=== PATIENT | female | born 1975 | race Caucasian/White ===

== ENCOUNTER 2023-03-16 21:26 | Emergency (ER) | payer SELFPAY ==
[~2023-03-16] VITALS: Ht 172.7 cm; Wt 61.2 kg
[2023-03-16] MEDS ORDERED: ONDANSETRON HCL INJ 2MG/ML 2ML 2 MG/ML VIAL IV STA (21:57)
[2023-03-16] MEDS ORDERED: KETOROLAC TROMETHAMINE 30 MG/ML VIAL IV STA (21:57)
[2023-03-16] MEDS ORDERED: KETOROLAC TROMETHAMINE 30 MG/ML VIAL ONE (21:59)
[2023-03-16] MEDS ORDERED: SODIUM CHLORIDE 0.9% 1000ML 1,000 ML ONE (21:59)
[2023-03-16] MEDS ORDERED: ONDANSETRON HCL INJ 2MG/ML 2ML 2 MG/ML VIAL ONE (21:59)
[2023-03-16] MEDS ORDERED: SODIUM CHLORIDE 0.9% 1000ML 1,000 ML IV ONE (22:00)
[2023-03-16 22:17] LABS: BASOPHILS # (AUTO) 0.1 (0.0-0.1); BASOPHILS % 0.2 % (0.0-1.0); HEMATOCRIT 49.7 % (34.2-44.1); HEMOGLOBIN 17.9 g/dL (12.0-16.0); LYMPHOCYTES # (AUTO) 1.4 (1.0-3.2); LYMPHOCYTES % 6.5 % (18.0-39.1); MEAN CORPUSCULAR HEMOGLOBIN 37.4 pg (28-32); MEAN CORPUSCULAR VOLUME 103.8 fL (81-99); MONOCYTES % 4.6 % (4.4-11.3); NEUTROPHILS # (AUTO) 18.9 (2.1-6.9); NEUTROPHILS % 88.2 % (38.7-80.0); PLATELET COUNT 233 x10e3/uL (140-360); RED BLOOD COUNT 4.79 x10e6/uL (3.6-5.1); RED CELL DISTRIBUTION WIDTH 13.2 % (11.7-14.4)
[2023-03-16 22:37] LABS: ALANINE AMINOTRANSFERASE 11 IU/L (0-55); ALBUMIN 2.8 g/dL (3.5-5.0); ALBUMIN/GLOBULIN RATIO 0.8 (0.8-2.0); ALKALINE PHOSPHATASE 100 IU/L (40-150); ANION GAP 18.2 mmol/L (8-16); BLOOD UREA NITROGEN < 5 mg/dL (7-26); CALCIUM 8.8 mg/dL (8.4-10.2); CARBON DIOXIDE 23 mmol/L (22-29); CHLORIDE 98 mmol/L (98-107); CREATININE, SERUM 0.66 mg/dL (0.57-1.11); GLUCOSE 146 mg/dL (74-118); LIPASE 4 U/L (8-78); POTASSIUM 3.2 mmol/L (3.5-5.1); SODIUM 136 mmol/L (136-145)
[2023-03-16 22:38] LABS: BUN/CREATININE RATIO 8 (6-25)
[2023-03-16] MEDS ORDERED: IOPAMIDOL 370 MG/ML 100 ML INFUS..BTL INJ ONE (23:01)
[2023-03-16] MEDS ORDERED: SODIUM CHLORIDE 0.9% 1000ML 1,840 ML IV ONE (23:30)
[2023-03-16 23:48] LABS: CLARITY,URINE SL CLOUDY (CLEAR); COLOR,URINE AMBER (YELLOW); KETONES,URINE NEGATIVE (NEGATIVE); LEUKOCYTE ESTERASE ,URINE SMALL (NEGATIVE); NITRITE,URINE NEGATIVE (NEGATIVE); PROTEIN,URINE DIPSTICK NEGATIVE (NEGATIVE); URINE UROBILINOGEN 0.2 mg/dL (0.2 - 1)
[2023-03-16 23:51] LABS: BACTERIA,URINE MODERATE /HPF; EPITHELIAL CELLS,URINE FEW /LPF; WBC,URINE (MAN) 21-50 /HPF (0-5)
[2023-03-17 03:14] VITALS: BP 105/64; PULSE 95; RESP 16; TEMP 98.5; O2SAT 98
== END 2023-03-17 03:16 | disposition other institution (70) ==
LOC: ER 21:31
DX: R11.2 Nausea with vomiting, unspecified (principal); U07.1 COVID-19; R65.21 Severe sepsis with septic shock; K57.32 Diverticulitis of large intestine without perforation or abscess without bleeding; R10.30 Lower abdominal pain, unspecified; R16.0 Hepatomegaly, not elsewhere classified
CPT/HCPCS: 36415; 71045; 74177; 80053; 81001; 83605; 83690; 84702; 85025; 87040; 99284; J1885; J2405; J2543; J7030; Q9967; U0002

== ENCOUNTER 2024-02-23 13:46 | Inpatient (IN) | payer BC, OTHER ==
[~2024-02-23] VITALS: Ht 172.7 cm; Wt 70.5 kg
[~2024-02-23 13:46] MED LIST: NAPROSYN500 MG PO
[2024-02-23] MEDS ORDERED: SODIUM CHLORIDE FLUSH 10 ML SYR IV PRN ×2 (14:30)
[2024-02-23] MEDS: HYDROMORPHONE 1MG/1ML INJ IV STA ×3 (14:45→21:32)
[2024-02-23] MEDS: ONDANSETRON HCL INJ 2MG/ML 2ML 2 MG/ML VIAL IV STA (14:45)
[2024-02-23] MEDS: SODIUM CHLORIDE 0.9% 1000ML 1,000 ML IV ONE (14:46)
[2024-02-23 15:07] LABS: BASOPHILS # (AUTO) 0.1 (0.0-0.1); BASOPHILS % 0.4 % (0.0-1.0); EOSINOPHILS % 0.1 % (0.0-6.0); HEMATOCRIT 47.2 % (34.2-44.1); LYMPHOCYTES # (AUTO) 1.2 (1.0-3.2); MEAN CORPUSCULAR HEMOGLOBIN 36.2 pg (28-32); MEAN CORPUSCULAR HGB CONC 33.9 g/dL (31-35); MEAN CORPUSCULAR VOLUME 106.8 fL (81-99); MONOCYTES # (AUTO) 0.8 (0.2-0.8); MONOCYTES % 5.5 % (4.4-11.3); NEUTROPHILS # (AUTO) 12.6 (2.1-6.9); NEUTROPHILS % 85.4 % (38.7-80.0); PLATELET COUNT 206 x10e3/uL (140-360); RED BLOOD COUNT 4.42 x10e6/uL (3.6-5.1); RED CELL DISTRIBUTION WIDTH 14.1 % (11.7-14.4); WHITE BLOOD COUNT 14.71 x10e3/uL (4.8-10.8)
[2024-02-23 15:26] LABS: ALBUMIN 3.2 g/dL (3.5-5.0); ALBUMIN/GLOBULIN RATIO 0.9 (0.8-2.0); ANION GAP 17.1 mmol/L (8-16); BILIRUBIN,TOTAL 1.5 mg/dL (0.2-1.2); CALCIUM 8.8 mg/dL (8.4-10.2); CREATININE, SERUM 0.64 mg/dL (0.57-1.11); POTASSIUM 4.1 mmol/L (3.5-5.1); TOTAL PROTEIN 6.6 g/dL (6.5-8.1)
[2024-02-23] MEDS ORDERED: IOPAMIDOL 370 MG/ML 100 ML INFUS..BTL INJ ONE (15:35)
[2024-02-23 17:12] LABS: BILIRUBIN,URINE NEGATIVE (NEGATIVE); CLARITY,URINE SL CLOUDY (CLEAR); COLOR,URINE YELLOW (YELLOW); GLUCOSE, URINE NEGATIVE (NEGATIVE); KETONES,URINE 2+ (NEGATIVE); LEUKOCYTE ESTERASE ,URINE NEGATIVE (NEGATIVE); NITRITE,URINE NEGATIVE (NEGATIVE); PH,URINE 5.5 (5 - 7); PROTEIN,URINE DIPSTICK NEGATIVE (NEGATIVE); URINE UROBILINOGEN 0.2 mg/dL (0.2 - 1)
[2024-02-23 17:24] LABS: AMORPHOUS SEDIMENT,URINE MODERATE (FEW); BACTERIA,URINE FEW /HPF; EPITHELIAL CELLS,URINE MODERATE /LPF; TRANSITIONAL EPI CELLS,URINE MODERATE
[2024-02-23 17:44] LABS: PROTHROMBIN TIME 13.9 seconds (11.9-14.5)
[2024-02-23 17:45] LABS: PARTIAL THROMBOPLASTIN TIME 25.8 seconds (23.8-35.5)
[2024-02-23] MEDS: SODIUM CHLORIDE 0.9% IV ONE (18:02)
[2024-02-23 18:04] VITALS: PULSE 79; RESP 18; TEMP 98.1
[2024-02-23 20:00] VITALS: BP 111/74; PULSE 88; RESP 18; TEMP 97.5; O2SAT 98
[2024-02-23] MEDS: Vancomycin IV 1 GM in SODIUM CHLORIDE 0.9% 250ML 250 ML IV SCH (20:14)
[2024-02-23] MEDS: METRONIDAZOLE 500MG/NS 100ML 100 ML IV SCH (20:14)
[2024-02-23] MEDS: SODIUM CHLORIDE 0.9% 1000ML 1,000 ML IV SCH (20:14)
[2024-02-23 20:19] VITALS: BP 110/88; PULSE 88; RESP 18; TEMP 97.5; O2SAT 97
[2024-02-23 20:20] VITALS: PULSE 88; RESP 18; O2SAT 97
[2024-02-23] MEDS ORDERED: ELIQUIS5 MG PO (20:26)
[2024-02-23] MEDS ORDERED: ENOXAPARIN SOD INJ 60 MG/0.6 ML SYR SC SCH (21:00)
[2024-02-23] MEDS: ONDANSETRON HCL INJ 2MG/ML 2ML 2 MG/ML VIAL IV PRN (21:32)
[2024-02-23 22:50] VITALS: BP 110/88; PULSE 88; RESP 18; TEMP 97.5; O2SAT 97
[2024-02-24] VITALS (14 sets, daily range): BP systolic 98–105; BP diastolic 62–79; PULSE 83–93; RESP 17–18; TEMP 97.3–98.6; O2SAT 95–100
[2024-02-24] MEDS: HYDROMORPHONE 1MG/1ML INJ IV PRN (02:31)
[2024-02-24 06:08] LABS: BASOPHILS # (AUTO) 0.1 (0.0-0.1); BASOPHILS % 0.3 % (0.0-1.0); EOSINOPHILS % 0.1 % (0.0-6.0); HEMATOCRIT 44.6 % (34.2-44.1); HEMOGLOBIN 14.8 g/dL (12.0-16.0); LYMPHOCYTES # (AUTO) 1.6 (1.0-3.2); LYMPHOCYTES % 8.7 % (18.0-39.1); MEAN CORPUSCULAR HEMOGLOBIN 35.6 pg (28-32); MEAN CORPUSCULAR HGB CONC 33.2 g/dL (31-35); MEAN CORPUSCULAR VOLUME 107.2 fL (81-99); MONOCYTES % 5.6 % (4.4-11.3); NEUTROPHILS # (AUTO) 15.7 (2.1-6.9); NEUTROPHILS % 84.2 % (38.7-80.0); PLATELET COUNT 193 x10e3/uL (140-360); RED BLOOD COUNT 4.16 x10e6/uL (3.6-5.1); RED CELL DISTRIBUTION WIDTH 14.1 % (11.7-14.4); WHITE BLOOD COUNT 18.67 x10e3/uL (4.8-10.8)
[2024-02-24 06:31] LABS: ALBUMIN 2.5 g/dL (3.5-5.0); ALBUMIN/GLOBULIN RATIO 0.8 (0.8-2.0); ANION GAP 13.4 mmol/L (8-16); BILIRUBIN,TOTAL 1.5 mg/dL (0.2-1.2); CALCIUM 8.1 mg/dL (8.4-10.2); CREATININE, SERUM 0.58 mg/dL (0.57-1.11); TOTAL PROTEIN 5.6 g/dL (6.5-8.1)
[2024-02-24 06:39] LABS: POTASSIUM 3.4 mmol/L (3.5-5.1)
[2024-02-24] MEDS: MAGNESIUM SULFATE 2GM/50ML 50 ML IV SCH (12:31)
[2024-02-24] MEDS: KETOROLAC TROMETHAMINE 30 MG/ML VIAL IV STA (12:31)
[2024-02-24] MEDS: ALBUTEROL/IPRATROPIUM 3 ML NEB NEB PRN (13:40)
[2024-02-24] MEDS: POTASSIUM CHLORIDE 10MEQ/100ML 200 ML IV ONE (17:24)
[2024-02-24] MEDS: ENOXAPARIN SOD INJ 40 MG/0.4 ML SYR SC SCH (17:25)
[2024-02-24] MEDS: KETOROLAC TROMETHAMINE 30 MG/ML VIAL IV PRN (17:53)
[2024-02-25] VITALS (10 sets, daily range): BP systolic 93–103; BP diastolic 64–70; PULSE 88–96; RESP 17–20; TEMP 97–98.6; O2SAT 95–100
[2024-02-25 07:02] LABS: BASOPHILS % 0.2 % (0.0-1.0); EOSINOPHILS # (AUTO) 0.1 (0.0-0.4); EOSINOPHILS % 0.8 % (0.0-6.0); HEMATOCRIT 37.9 % (34.2-44.1); LYMPHOCYTES # (AUTO) 1.6 (1.0-3.2); LYMPHOCYTES % 11.2 % (18.0-39.1); MEAN CORPUSCULAR HEMOGLOBIN 36.6 pg (28-32); MEAN CORPUSCULAR HGB CONC 34.3 g/dL (31-35); MEAN CORPUSCULAR VOLUME 106.8 fL (81-99); MONOCYTES # (AUTO) 0.9 (0.2-0.8); MONOCYTES % 5.9 % (4.4-11.3); NEUTROPHILS # (AUTO) 11.9 (2.1-6.9); NEUTROPHILS % 81.2 % (38.7-80.0); PLATELET COUNT 170 x10e3/uL (140-360); RED BLOOD COUNT 3.55 x10e6/uL (3.6-5.1); RED CELL DISTRIBUTION WIDTH 14.3 % (11.7-14.4)
[2024-02-25 09:07] LABS: ALBUMIN 2.1 g/dL (3.5-5.0); ALBUMIN/GLOBULIN RATIO 0.8 (0.8-2.0); ALKALINE PHOSPHATASE 68 IU/L (40-150); ANION GAP 13.5 mmol/L (8-16); BILIRUBIN,TOTAL 0.9 mg/dL (0.2-1.2); BLOOD UREA NITROGEN < 5 mg/dL (7-26); CALCIUM 7.8 mg/dL (8.4-10.2); CARBON DIOXIDE 17 mmol/L (22-29); CHLORIDE 107 mmol/L (98-107); CREATININE, SERUM 0.53 mg/dL (0.57-1.11); EST GLOMERULAR FILTRATION RATE 115 ML/MIN (>=60); GLUCOSE 68 mg/dL (74-118); MAGNESIUM 1.9 MG/DL (1.3-2.1); POTASSIUM 3.5 mmol/L (3.5-5.1); SODIUM 134 mmol/L (136-145); TOTAL PROTEIN 4.9 g/dL (6.5-8.1)
[2024-02-25 09:15] LABS: ALANINE AMINOTRANSFERASE < 6 IU/L (0-55); BUN/CREATININE RATIO 9 (6-25)
[2024-02-25] MEDS: Vancomycin IV 1 GM in SODIUM CHLORIDE 0.9% 250ML 250 ML IV SCH (22:31)
[2024-02-26] VITALS (11 sets, daily range): BP systolic 101–118; BP diastolic 65–80; PULSE 81–98; RESP 18–22; TEMP 97.9–99.3; O2SAT 95–100
[2024-02-26 07:47] LABS: BASOPHILS % 0.2 % (0.0-1.0); EOSINOPHILS # (AUTO) 0.1 (0.0-0.4); EOSINOPHILS % 1.1 % (0.0-6.0); HEMATOCRIT 37.1 % (34.2-44.1); HEMOGLOBIN 12.7 g/dL (12.0-16.0); LYMPHOCYTES # (AUTO) 1.8 (1.0-3.2); LYMPHOCYTES % 14.6 % (18.0-39.1); MEAN CORPUSCULAR HEMOGLOBIN 36.5 pg (28-32); MEAN CORPUSCULAR HGB CONC 34.2 g/dL (31-35); MEAN CORPUSCULAR VOLUME 106.6 fL (81-99); MONOCYTES # (AUTO) 0.9 (0.2-0.8); MONOCYTES % 7.3 % (4.4-11.3); NEUTROPHILS # (AUTO) 9.3 (2.1-6.9); NEUTROPHILS % 75.9 % (38.7-80.0); PLATELET COUNT 177 x10e3/uL (140-360); RED BLOOD COUNT 3.48 x10e6/uL (3.6-5.1); RED CELL DISTRIBUTION WIDTH 14.1 % (11.7-14.4); WHITE BLOOD COUNT 12.22 x10e3/uL (4.8-10.8)
[2024-02-26] MEDS: SODIUM CHLORIDE 0.9% 250ML 250 ML ONE (07:56)
[2024-02-26] MEDS: SODIUM CHLORIDE 0.9% 1000ML 1,630 ML IV ONE (07:58)
[2024-02-26 08:03] LABS: ALANINE AMINOTRANSFERASE < 6 IU/L (0-55); ALBUMIN 1.9 g/dL (3.5-5.0); ALBUMIN/GLOBULIN RATIO 0.7 (0.8-2.0); ALKALINE PHOSPHATASE 69 IU/L (40-150); ANION GAP 13.6 mmol/L (8-16); BILIRUBIN,TOTAL 0.4 mg/dL (0.2-1.2); BLOOD UREA NITROGEN < 5 mg/dL (7-26); BUN/CREATININE RATIO 9 (6-25); CALCIUM 8.2 mg/dL (8.4-10.2); CARBON DIOXIDE 13 mmol/L (22-29); CHLORIDE 110 mmol/L (98-107); CREATININE, SERUM 0.57 mg/dL (0.57-1.11); EST GLOMERULAR FILTRATION RATE 113 ML/MIN (>=60); GLUCOSE 60 mg/dL (74-118); MAGNESIUM 1.5 MG/DL (1.3-2.1); POTASSIUM 3.6 mmol/L (3.5-5.1); SODIUM 133 mmol/L (136-145); TOTAL PROTEIN 4.7 g/dL (6.5-8.1)
[2024-02-26] MEDS: MAGNESIUM SULFATE 2GM/50ML 50 ML IV ONE (11:58)
[2024-02-26] MEDS: GUAIFENESIN/DEXTROMETHORPHAN LIQD 5 ML UDC NG PRN (12:00)
[2024-02-26] MEDS: DIPHENHYDRAMINE HCL 25 MG CAP PO PRN (13:29)
[2024-02-26] MEDS: Vancomycin IV 1 GM in SODIUM CHLORIDE 0.9% 250ML 250 ML IV SCH (23:06)
[2024-02-27] VITALS (10 sets, daily range): BP systolic 99–112; BP diastolic 65–81; PULSE 76–91; RESP 18–19; TEMP 97.9–98.6; O2SAT 96–100
[2024-02-27 05:55] LABS: BASOPHILS % 0.5 % (0.0-1.0); EOSINOPHILS # (AUTO) 0.2 (0.0-0.4); EOSINOPHILS % 1.7 % (0.0-6.0); HEMOGLOBIN 12.3 g/dL (12.0-16.0); LYMPHOCYTES # (AUTO) 1.8 (1.0-3.2); LYMPHOCYTES % 21.2 % (18.0-39.1); MEAN CORPUSCULAR HEMOGLOBIN 35.2 pg (28-32); MEAN CORPUSCULAR HGB CONC 32.4 g/dL (31-35); MEAN CORPUSCULAR VOLUME 108.9 fL (81-99); MONOCYTES # (AUTO) 0.9 (0.2-0.8); MONOCYTES % 10.6 % (4.4-11.3); NEUTROPHILS # (AUTO) 5.7 (2.1-6.9); NEUTROPHILS % 65.5 % (38.7-80.0); PLATELET COUNT 209 x10e3/uL (140-360); RED BLOOD COUNT 3.49 x10e6/uL (3.6-5.1); RED CELL DISTRIBUTION WIDTH 14.3 % (11.7-14.4); WHITE BLOOD COUNT 8.62 x10e3/uL (4.8-10.8)
[2024-02-27 06:40] LABS: ALBUMIN 1.8 g/dL (3.5-5.0); ALBUMIN/GLOBULIN RATIO 0.6 (0.8-2.0); ALKALINE PHOSPHATASE 76 IU/L (40-150); ANION GAP 12.4 mmol/L (8-16); BILIRUBIN,TOTAL 0.2 mg/dL (0.2-1.2); BLOOD UREA NITROGEN < 5 mg/dL (7-26); BUN/CREATININE RATIO 9 (6-25); CALCIUM 7.8 mg/dL (8.4-10.2); CARBON DIOXIDE 15 mmol/L (22-29); CHLORIDE 113 mmol/L (98-107); CREATININE, SERUM 0.56 mg/dL (0.57-1.11); EST GLOMERULAR FILTRATION RATE 113 ML/MIN (>=60); GLUCOSE 140 mg/dL (74-118); MAGNESIUM 1.6 MG/DL (1.3-2.1); SODIUM 137 mmol/L (136-145); TOTAL PROTEIN 4.6 g/dL (6.5-8.1)
[2024-02-27 06:42] LABS: ALANINE AMINOTRANSFERASE < 6 IU/L (0-55); POTASSIUM 3.4 mmol/L (3.5-5.1)
[2024-02-27] MEDS: APIXABAN 5 MG TABLET PO SCH (08:36)
[2024-02-27] MEDS: POTASSIUM CHLORIDE 10MEQ EA PO ONE (08:37)
[2024-02-27] MEDS: MAGNESIUM SULFATE 2GM/50ML 50 ML IV SCH (08:38)
[2024-02-28] VITALS (8 sets, daily range): BP systolic 97–119; BP diastolic 69–84; PULSE 77–89; RESP 18–19; TEMP 98–98.8; O2SAT 95–100
[2024-02-28 05:27] LABS: BASOPHILS % 0.5 % (0.0-1.0); EOSINOPHILS # (AUTO) 0.1 (0.0-0.4); EOSINOPHILS % 2.1 % (0.0-6.0); HEMOGLOBIN 12.1 g/dL (12.0-16.0); LYMPHOCYTES # (AUTO) 1.9 (1.0-3.2); LYMPHOCYTES % 27.8 % (18.0-39.1); MEAN CORPUSCULAR HEMOGLOBIN 35.2 pg (28-32); MEAN CORPUSCULAR HGB CONC 32.7 g/dL (31-35); MEAN CORPUSCULAR VOLUME 107.6 fL (81-99); MONOCYTES # (AUTO) 0.8 (0.2-0.8); MONOCYTES % 11.6 % (4.4-11.3); NEUTROPHILS # (AUTO) 3.8 (2.1-6.9); NEUTROPHILS % 57.5 % (38.7-80.0); PLATELET COUNT 220 x10e3/uL (140-360); RED BLOOD COUNT 3.44 x10e6/uL (3.6-5.1); RED CELL DISTRIBUTION WIDTH 14.4 % (11.7-14.4); WHITE BLOOD COUNT 6.65 x10e3/uL (4.8-10.8)
[2024-02-28 05:52] LABS: ALBUMIN 1.8 g/dL (3.5-5.0); ALBUMIN/GLOBULIN RATIO 0.7 (0.8-2.0); ALKALINE PHOSPHATASE 78 IU/L (40-150); ANION GAP 10.3 mmol/L (8-16); BILIRUBIN,TOTAL 0.3 mg/dL (0.2-1.2); BLOOD UREA NITROGEN < 5 mg/dL (7-26); BUN/CREATININE RATIO 11 (6-25); CALCIUM 7.7 mg/dL (8.4-10.2); CARBON DIOXIDE 18 mmol/L (22-29); CHLORIDE 113 mmol/L (98-107); CREATININE, SERUM 0.46 mg/dL (0.57-1.11); EST GLOMERULAR FILTRATION RATE 119 ML/MIN (>=60); GLUCOSE 91 mg/dL (74-118); MAGNESIUM 1.8 MG/DL (1.3-2.1); SODIUM 138 mmol/L (136-145); TOTAL PROTEIN 4.4 g/dL (6.5-8.1)
[2024-02-28 05:57] LABS: ALANINE AMINOTRANSFERASE < 6 IU/L (0-55); POTASSIUM 3.3 mmol/L (3.5-5.1)
[2024-02-28] MEDS: POTASSIUM CHLORIDE 10MEQ EA PO ONE (13:08)
[2024-02-28] MEDS: DICYCLOMINE HCL 10 MG CAP PO SCH (13:08)
[2024-02-28] MEDS: HYDROCODONE/APAP 5MG-325MG TAB PO PRN (21:47)
[2024-02-29] VITALS (11 sets, daily range): BP systolic 105–136; BP diastolic 74–85; PULSE 78–91; RESP 18–20; TEMP 97.3–98.9; O2SAT 94–100
[2024-02-29 05:51] LABS: BASOPHILS % 0.5 % (0.0-1.0); EOSINOPHILS # (AUTO) 0.1 (0.0-0.4); EOSINOPHILS % 1.4 % (0.0-6.0); HEMATOCRIT 37.5 % (34.2-44.1); HEMOGLOBIN 12.4 g/dL (12.0-16.0); LYMPHOCYTES # (AUTO) 1.5 (1.0-3.2); LYMPHOCYTES % 19.5 % (18.0-39.1); MEAN CORPUSCULAR HEMOGLOBIN 35.2 pg (28-32); MEAN CORPUSCULAR HGB CONC 33.1 g/dL (31-35); MEAN CORPUSCULAR VOLUME 106.5 fL (81-99); NEUTROPHILS # (AUTO) 4.9 (2.1-6.9); NEUTROPHILS % 65.1 % (38.7-80.0); PLATELET COUNT 235 x10e3/uL (140-360); RED BLOOD COUNT 3.52 x10e6/uL (3.6-5.1); RED CELL DISTRIBUTION WIDTH 14.5 % (11.7-14.4); WHITE BLOOD COUNT 7.59 x10e3/uL (4.8-10.8)
[2024-02-29 06:20] LABS: ANION GAP 11.6 mmol/L (8-16); BLOOD UREA NITROGEN < 5 mg/dL (7-26); BUN/CREATININE RATIO 11 (6-25); CALCIUM 8.5 mg/dL (8.4-10.2); CARBON DIOXIDE 19 mmol/L (22-29); CHLORIDE 111 mmol/L (98-107); CREATININE, SERUM 0.46 mg/dL (0.57-1.11); EST GLOMERULAR FILTRATION RATE 119 ML/MIN (>=60); GLUCOSE 108 mg/dL (74-118); MAGNESIUM 1.4 MG/DL (1.3-2.1); POTASSIUM 3.6 mmol/L (3.5-5.1); SODIUM 138 mmol/L (136-145)
[2024-02-29] MEDS: MAGNESIUM SULFATE 2GM/50ML 50 ML IV SCH (10:16)
[2024-02-29] MEDS: FUROSEMIDE INJ 10 MG/ML 4 ML VIAL IV ONE (21:07)
[2024-03-01 04:14] VITALS: BP 122/77; PULSE 90; RESP 18; TEMP 98.5; O2SAT 94
[2024-03-01 06:28] LABS: ALBUMIN 2.1 g/dL (3.5-5.0); ALBUMIN/GLOBULIN RATIO 0.7 (0.8-2.0); ALKALINE PHOSPHATASE 72 IU/L (40-150); ANION GAP 13.5 mmol/L (8-16); BILIRUBIN,TOTAL 0.4 mg/dL (0.2-1.2); BLOOD UREA NITROGEN < 5 mg/dL (7-26); BUN/CREATININE RATIO 10 (6-25); CALCIUM 8.9 mg/dL (8.4-10.2); CARBON DIOXIDE 24 mmol/L (22-29); CHLORIDE 107 mmol/L (98-107); CREATININE, SERUM 0.49 mg/dL (0.57-1.11); EST GLOMERULAR FILTRATION RATE 117 ML/MIN (>=60); GLUCOSE 94 mg/dL (74-118); MAGNESIUM 1.6 MG/DL (1.3-2.1); POTASSIUM 3.5 mmol/L (3.5-5.1); SODIUM 141 mmol/L (136-145); TOTAL PROTEIN 5.2 g/dL (6.5-8.1)
[2024-03-01 06:32] LABS: ALANINE AMINOTRANSFERASE < 6 IU/L (0-55)
[2024-03-01 06:44] VITALS: PULSE 76; RESP 21; O2SAT 98
[2024-03-01 07:22] VITALS: BP 115/78; PULSE 86; RESP 17; TEMP 98.9; O2SAT 98
[2024-03-01] MEDS: FUROSEMIDE INJ 10 MG/ML 4 ML VIAL IV SCH (13:29)
[2024-03-01] MEDS: MAGNESIUM SULFATE 2GM/50ML 50 ML IV SCH (13:30)
[2024-03-01 15:52] VITALS: BP 106/73; PULSE 82; RESP 17; TEMP 98.4; O2SAT 95
[2024-03-01 16:50] LABS: HOMOCYSTEINE, PLASMA 14.3 umol/L (0.0-14.5)
[2024-03-01 20:00] VITALS: BP 97/71; PULSE 83; RESP 18; TEMP 98.4; O2SAT 95
[2024-03-01] MEDS ORDERED: Vancomycin IV 1 GM in SODIUM CHLORIDE 0.9% 250ML 250 ML IV SCH (21:00)
[2024-03-01 23:15] VITALS: BP 97/71; PULSE 83; RESP 18; TEMP 98.4; O2SAT 95
[2024-03-02] VITALS (10 sets, daily range): BP systolic 103–110; BP diastolic 67–78; PULSE 71–84; RESP 18–21; TEMP 97.7–98.8; O2SAT 94–100
[2024-03-02] MEDS: HYDROMORPHONE 1MG/1ML INJ IV PRN ×2 (00:09→10:01)
[2024-03-02 05:39] LABS: BASOPHILS % 0.2 % (0.0-1.0); EOSINOPHILS # (AUTO) 0.1 (0.0-0.4); HEMATOCRIT 34.4 % (34.2-44.1); HEMOGLOBIN 12.1 g/dL (12.0-16.0); LYMPHOCYTES # (AUTO) 1.5 (1.0-3.2); LYMPHOCYTES % 17.7 % (18.0-39.1); MEAN CORPUSCULAR HGB CONC 35.2 g/dL (31-35); MEAN CORPUSCULAR VOLUME 102.4 fL (81-99); MONOCYTES % 11.1 % (4.4-11.3); NEUTROPHILS # (AUTO) 6.1 (2.1-6.9); NEUTROPHILS % 69.5 % (38.7-80.0); PLATELET COUNT 329 x10e3/uL (140-360); RED BLOOD COUNT 3.36 x10e6/uL (3.6-5.1); RED CELL DISTRIBUTION WIDTH 14.2 % (11.7-14.4); WHITE BLOOD COUNT 8.71 x10e3/uL (4.8-10.8)
[2024-03-02 06:26] LABS: ANION GAP 14.5 mmol/L (8-16); BLOOD UREA NITROGEN < 5 mg/dL (7-26); BUN/CREATININE RATIO 10 (6-25); CARBON DIOXIDE 28 mmol/L (22-29); CHLORIDE 99 mmol/L (98-107); CREATININE, SERUM 0.51 mg/dL (0.57-1.11); EST GLOMERULAR FILTRATION RATE 116 ML/MIN (>=60); GLUCOSE 90 mg/dL (74-118); POTASSIUM 3.5 mmol/L (3.5-5.1); SODIUM 138 mmol/L (136-145)
[2024-03-02] MEDS: PROMETHAZINE 12.5MG/ NACL 0.9% 12.5 MG/50 ML BAG IV PRN (11:01)
[2024-03-03] VITALS (10 sets, daily range): BP systolic 98–115; BP diastolic 64–80; PULSE 63–88; RESP 16–19; TEMP 97.8–98.6; O2SAT 95–100
[2024-03-04] VITALS (10 sets, daily range): BP systolic 98–110; BP diastolic 64–77; PULSE 72–85; RESP 16–19; TEMP 97.8–98.9; O2SAT 93–100
[2024-03-04 07:24] LABS: BASOPHILS # (AUTO) 0.1 (0.0-0.1); BASOPHILS % 0.4 % (0.0-1.0); EOSINOPHILS # (AUTO) 0.2 (0.0-0.4); EOSINOPHILS % 1.4 % (0.0-6.0); HEMATOCRIT 36.1 % (34.2-44.1); HEMOGLOBIN 12.5 g/dL (12.0-16.0); LYMPHOCYTES # (AUTO) 2.1 (1.0-3.2); LYMPHOCYTES % 17.1 % (18.0-39.1); MEAN CORPUSCULAR HEMOGLOBIN 35.2 pg (28-32); MEAN CORPUSCULAR HGB CONC 34.6 g/dL (31-35); MEAN CORPUSCULAR VOLUME 101.7 fL (81-99); MONOCYTES # (AUTO) 1.1 (0.2-0.8); MONOCYTES % 8.7 % (4.4-11.3); NEUTROPHILS # (AUTO) 8.8 (2.1-6.9); NEUTROPHILS % 71.9 % (38.7-80.0); PLATELET COUNT 411 x10e3/uL (140-360); RED BLOOD COUNT 3.55 x10e6/uL (3.6-5.1); RED CELL DISTRIBUTION WIDTH 14.2 % (11.7-14.4); WHITE BLOOD COUNT 12.19 x10e3/uL (4.8-10.8)
[2024-03-04] MEDS: SODIUM CHLORIDE 0.9% 250ML 250 ML ONE (07:50)
[2024-03-04 07:59] LABS: ALBUMIN 2.2 g/dL (3.5-5.0); ALBUMIN/GLOBULIN RATIO 0.7 (0.8-2.0); ALKALINE PHOSPHATASE 58 IU/L (40-150); BILIRUBIN,TOTAL 0.3 mg/dL (0.2-1.2); BLOOD UREA NITROGEN < 5 mg/dL (7-26); CALCIUM 9.5 mg/dL (8.4-10.2); CARBON DIOXIDE 32 mmol/L (22-29); CHLORIDE 99 mmol/L (98-107); CREATININE, SERUM 0.55 mg/dL (0.57-1.11); EST GLOMERULAR FILTRATION RATE 114 ML/MIN (>=60); GLUCOSE 95 mg/dL (74-118); SODIUM 141 mmol/L (136-145); TOTAL PROTEIN 5.5 g/dL (6.5-8.1)
[2024-03-04 08:01] LABS: ALANINE AMINOTRANSFERASE < 6 IU/L (0-55); BUN/CREATININE RATIO 9 (6-25)
[2024-03-05] VITALS (9 sets, daily range): BP systolic 97–111; BP diastolic 60–77; PULSE 74–86; RESP 16–18; TEMP 97.7–99.5; O2SAT 96–100
[2024-03-05 05:55] LABS: BASOPHILS # (AUTO) 0.1 (0.0-0.1); BASOPHILS % 0.5 % (0.0-1.0); EOSINOPHILS # (AUTO) 0.2 (0.0-0.4); EOSINOPHILS % 1.4 % (0.0-6.0); HEMATOCRIT 36.1 % (34.2-44.1); HEMOGLOBIN 11.9 g/dL (12.0-16.0); LYMPHOCYTES # (AUTO) 2.3 (1.0-3.2); LYMPHOCYTES % 20.6 % (18.0-39.1); MEAN CORPUSCULAR HEMOGLOBIN 34.9 pg (28-32); MEAN CORPUSCULAR VOLUME 105.9 fL (81-99); MONOCYTES # (AUTO) 0.9 (0.2-0.8); MONOCYTES % 8.2 % (4.4-11.3); NEUTROPHILS # (AUTO) 7.6 (2.1-6.9); NEUTROPHILS % 68.6 % (38.7-80.0); PLATELET COUNT 409 x10e3/uL (140-360); RED BLOOD COUNT 3.41 x10e6/uL (3.6-5.1); RED CELL DISTRIBUTION WIDTH 14.5 % (11.7-14.4); WHITE BLOOD COUNT 11.06 x10e3/uL (4.8-10.8)
[2024-03-05 06:20] LABS: ALBUMIN 2.2 g/dL (3.5-5.0); ALBUMIN/GLOBULIN RATIO 0.7 (0.8-2.0); ALKALINE PHOSPHATASE 53 IU/L (40-150); ANION GAP 6.3 mmol/L (8-16); BILIRUBIN,TOTAL 0.2 mg/dL (0.2-1.2); BLOOD UREA NITROGEN < 5 mg/dL (7-26); CARBON DIOXIDE 37 mmol/L (22-29); CHLORIDE 102 mmol/L (98-107); CREATININE, SERUM 0.51 mg/dL (0.57-1.11); EST GLOMERULAR FILTRATION RATE 116 ML/MIN (>=60); GLUCOSE 101 mg/dL (74-118); SODIUM 142 mmol/L (136-145); TOTAL PROTEIN 5.5 g/dL (6.5-8.1)
[2024-03-05 06:26] LABS: ALANINE AMINOTRANSFERASE < 6 IU/L (0-55); BUN/CREATININE RATIO 10 (6-25); POTASSIUM 3.3 mmol/L (3.5-5.1)
[2024-03-05 07:06] LABS: CALCIUM 9.1 mg/dL (8.4-10.2)
[2024-03-05] MEDS ORDERED: IOPAMIDOL 370 MG/ML 100 ML INFUS..BTL INJ ONE (11:49)
[2024-03-05] MEDS: MAGNESIUM HYDROXIDE 30 ML UDC PO SCH (20:43)
[2024-03-05] MEDS: METRONIDAZOLE 500MG/NS 100ML 100 ML IV SCH (20:43)
[2024-03-05] MEDS ORDERED: METRONIDAZOLE 500MG/NS 100ML 100 ML IV SCH (21:00)
[2024-03-06] VITALS (8 sets, daily range): BP systolic 93–107; BP diastolic 66–73; PULSE 68–98; RESP 16–20; TEMP 97.5–99.6; O2SAT 96–100
[2024-03-06 06:51] LABS: BASOPHILS # (AUTO) 0.1 (0.0-0.1); BASOPHILS % 0.6 % (0.0-1.0); EOSINOPHILS # (AUTO) 0.3 (0.0-0.4); EOSINOPHILS % 2.4 % (0.0-6.0); HEMATOCRIT 37.1 % (34.2-44.1); HEMOGLOBIN 12.8 g/dL (12.0-16.0); LYMPHOCYTES # (AUTO) 2.5 (1.0-3.2); LYMPHOCYTES % 24.3 % (18.0-39.1); MEAN CORPUSCULAR HEMOGLOBIN 35.2 pg (28-32); MEAN CORPUSCULAR HGB CONC 34.5 g/dL (31-35); MEAN CORPUSCULAR VOLUME 101.9 fL (81-99); MONOCYTES # (AUTO) 0.9 (0.2-0.8); MONOCYTES % 9.1 % (4.4-11.3); NEUTROPHILS # (AUTO) 6.4 (2.1-6.9); PLATELET COUNT 440 x10e3/uL (140-360); RED BLOOD COUNT 3.64 x10e6/uL (3.6-5.1); RED CELL DISTRIBUTION WIDTH 14.5 % (11.7-14.4); WHITE BLOOD COUNT 10.21 x10e3/uL (4.8-10.8)
[2024-03-06 07:14] LABS: ALBUMIN 2.3 g/dL (3.5-5.0); ALBUMIN/GLOBULIN RATIO 0.6 (0.8-2.0); ALKALINE PHOSPHATASE 57 IU/L (40-150); BILIRUBIN,TOTAL 0.3 mg/dL (0.2-1.2); BLOOD UREA NITROGEN < 5 mg/dL (7-26); CREATININE, SERUM 0.55 mg/dL (0.57-1.11); EST GLOMERULAR FILTRATION RATE 114 ML/MIN (>=60); GLUCOSE 93 mg/dL (74-118); MAGNESIUM 2.1 MG/DL (1.3-2.1); TOTAL PROTEIN 6.1 g/dL (6.5-8.1)
[2024-03-06 07:15] LABS: ALANINE AMINOTRANSFERASE < 6 IU/L (0-55); BUN/CREATININE RATIO 9 (6-25)
[2024-03-06 07:31] LABS: CALCIUM 9.5 mg/dL (8.4-10.2)
[2024-03-06 08:43] LABS: ANION GAP 12.2 mmol/L (8-16); CARBON DIOXIDE 33 mmol/L (22-29); CHLORIDE 99 mmol/L (98-107); SODIUM 141 mmol/L (136-145)
[2024-03-06 08:44] LABS: POTASSIUM 3.2 mmol/L (3.5-5.1)
[2024-03-06] MEDS: ALPRAZOLAM 0.5 MG TAB PO PRN (09:24)
[2024-03-06] MEDS: ENOXAPARIN SOD INJ 60 MG/0.6 ML SYR SC SCH (09:25)
[2024-03-06] MEDS: HYDROCODONE/APAP 7.5MG-325MG 1 EA TAB PO PRN (20:43)
[2024-03-07] VITALS (10 sets, daily range): BP systolic 92–109; BP diastolic 69–79; PULSE 72–98; RESP 8–20; TEMP 97.6–99.5; O2SAT 94–100
[2024-03-07 05:56] LABS: BASOPHILS # (AUTO) 0.1 (0.0-0.1); BASOPHILS % 0.5 % (0.0-1.0); EOSINOPHILS # (AUTO) 0.2 (0.0-0.4); EOSINOPHILS % 1.9 % (0.0-6.0); HEMATOCRIT 38.7 % (34.2-44.1); HEMOGLOBIN 13.4 g/dL (12.0-16.0); LYMPHOCYTES # (AUTO) 2.4 (1.0-3.2); LYMPHOCYTES % 21.3 % (18.0-39.1); MEAN CORPUSCULAR HEMOGLOBIN 35.4 pg (28-32); MEAN CORPUSCULAR HGB CONC 34.6 g/dL (31-35); MEAN CORPUSCULAR VOLUME 102.4 fL (81-99); MONOCYTES # (AUTO) 1.1 (0.2-0.8); MONOCYTES % 9.6 % (4.4-11.3); NEUTROPHILS # (AUTO) 7.5 (2.1-6.9); NEUTROPHILS % 66.3 % (38.7-80.0); PLATELET COUNT 484 x10e3/uL (140-360); RED BLOOD COUNT 3.78 x10e6/uL (3.6-5.1); RED CELL DISTRIBUTION WIDTH 14.6 % (11.7-14.4); WHITE BLOOD COUNT 11.35 x10e3/uL (4.8-10.8)
[2024-03-07 06:50] LABS: ALBUMIN 2.4 g/dL (3.5-5.0); ALBUMIN/GLOBULIN RATIO 0.6 (0.8-2.0); ALKALINE PHOSPHATASE 65 IU/L (40-150); BILIRUBIN,TOTAL 0.1 mg/dL (0.2-1.2); BLOOD UREA NITROGEN < 5 mg/dL (7-26); CREATININE, SERUM 0.54 mg/dL (0.57-1.11); EST GLOMERULAR FILTRATION RATE 114 ML/MIN (>=60); GLUCOSE 105 mg/dL (74-118); TOTAL PROTEIN 6.4 g/dL (6.5-8.1)
[2024-03-07 06:52] LABS: ALANINE AMINOTRANSFERASE < 6 IU/L (0-55); BUN/CREATININE RATIO 9 (6-25)
[2024-03-07] MEDS: ERYTHROMYCIN 500 MG TAB PO SCH (13:04)
[2024-03-07] MEDS: NEOMYCIN SULFATE 500 MG TAB PO SCH (13:04)
[2024-03-07] MEDS: HYDROCODONE/APAP 7.5MG-325MG 1 EA TAB PO PRN (16:10)
[2024-03-07 18:54] LABS: ANION GAP 19.5 mmol/L (8-16); CARBON DIOXIDE 25 mmol/L (22-29); CHLORIDE 100 mmol/L (98-107); POTASSIUM 3.5 mmol/L (3.5-5.1); SODIUM 141 mmol/L (136-145)
[2024-03-07 18:55] LABS: CALCIUM 9.1 mg/dL (8.4-10.2)
[2024-03-08] VITALS (20 sets, daily range): BP systolic 87–126; BP diastolic 58–83; PULSE 77–91; RESP 8–20; TEMP 96.4–98.5; O2SAT 94–100
[2024-03-08 06:38] LABS: BASOPHILS # (AUTO) 0.1 (0.0-0.1); BASOPHILS % 0.4 % (0.0-1.0); EOSINOPHILS # (AUTO) 0.2 (0.0-0.4); EOSINOPHILS % 1.3 % (0.0-6.0); HEMATOCRIT 39.6 % (34.2-44.1); HEMOGLOBIN 13.5 g/dL (12.0-16.0); LYMPHOCYTES # (AUTO) 1.6 (1.0-3.2); LYMPHOCYTES % 12.2 % (18.0-39.1); MEAN CORPUSCULAR HEMOGLOBIN 35.2 pg (28-32); MEAN CORPUSCULAR HGB CONC 34.1 g/dL (31-35); MEAN CORPUSCULAR VOLUME 103.1 fL (81-99); MONOCYTES % 7.4 % (4.4-11.3); NEUTROPHILS # (AUTO) 10.1 (2.1-6.9); NEUTROPHILS % 77.9 % (38.7-80.0); PLATELET COUNT 437 x10e3/uL (140-360); RED BLOOD COUNT 3.84 x10e6/uL (3.6-5.1); RED CELL DISTRIBUTION WIDTH 14.7 % (11.7-14.4)
[2024-03-08 06:53] LABS: ALBUMIN 2.5 g/dL (3.5-5.0); ALBUMIN/GLOBULIN RATIO 0.6 (0.8-2.0); ALKALINE PHOSPHATASE 60 IU/L (40-150); BILIRUBIN,TOTAL 0.3 mg/dL (0.2-1.2); BLOOD UREA NITROGEN < 5 mg/dL (7-26); EST GLOMERULAR FILTRATION RATE 111 ML/MIN (>=60); GLUCOSE 103 mg/dL (74-118); TOTAL PROTEIN 6.5 g/dL (6.5-8.1)
[2024-03-08 06:56] LABS: ALANINE AMINOTRANSFERASE < 6 IU/L (0-55); BUN/CREATININE RATIO 8 (6-25)
[2024-03-08] MEDS: ROPIVACAINE 246.25 MG, EPINEPHRINE HCL 1:1000 1ML 0.5 MG, CLONIDINE HCL 0.08 MG, KETORO... INJ ONE (08:34)
[2024-03-08] MEDS: BUPIVACAINE LIPOSOME/PF 266 MG/20 ML IJ ONE (10:15)
[2024-03-08 11:01] LABS: ANION GAP 18.3 mmol/L (8-16)
[2024-03-08 11:02] LABS: CALCIUM 8.8 mg/dL (8.4-10.2); CARBON DIOXIDE 24 mmol/L (22-29); CHLORIDE 99 mmol/L (98-107); POTASSIUM 3.3 mmol/L (3.5-5.1); SODIUM 138 mmol/L (136-145)
[2024-03-08] MEDS ORDERED: FENTANYL CITRATE/PF 100MCG/2 ML INJ ONE (13:27)
[2024-03-08] MEDS ORDERED: ACETAMINOPHEN 1000 MG/100 ML 100 ML IV ONE (15:44)
[2024-03-08] MEDS ORDERED: HYDROMORPHONE 2MG/ML ONE (16:52)
[2024-03-08] MEDS ORDERED: SUGAMMADEX SODIUM 200 MG/2 ML VIAL IV ONE (18:32)
[2024-03-08] MEDS: SODIUM CHLORIDE 0.9% 1000ML 1,000 ML IV SCH (20:22)
[2024-03-08] MEDS: HYDROMORPHONE 1MG/1ML INJ IV PRN (21:06)
[2024-03-08] MEDS: SODIUM CHLORIDE 0.9% 250ML IRRIG IR SCH (22:02)
[2024-03-09] VITALS (54 sets, daily range): BP systolic 91–118; BP diastolic 59–80; PULSE 74–102; RESP 8–27; TEMP 97.8–98.5; O2SAT 89–100
[2024-03-09] MEDS: ACETAMINOPHEN 1000 MG/100 ML IV PRN (00:02)
[2024-03-09 06:19] LABS: BASOPHILS % 0.1 % (0.0-1.0); HEMATOCRIT 38.3 % (34.2-44.1); LYMPHOCYTES # (AUTO) 0.9 (1.0-3.2); LYMPHOCYTES % 6.6 % (18.0-39.1); MEAN CORPUSCULAR HEMOGLOBIN 35.1 pg (28-32); MEAN CORPUSCULAR HGB CONC 33.9 g/dL (31-35); MEAN CORPUSCULAR VOLUME 103.5 fL (81-99); MONOCYTES # (AUTO) 0.4 (0.2-0.8); MONOCYTES % 2.8 % (4.4-11.3); NEUTROPHILS # (AUTO) 12.7 (2.1-6.9); NEUTROPHILS % 89.7 % (38.7-80.0); PLATELET COUNT 444 x10e3/uL (140-360); RED CELL DISTRIBUTION WIDTH 14.4 % (11.7-14.4); WHITE BLOOD COUNT 14.17 x10e3/uL (4.8-10.8)
[2024-03-09 06:43] LABS: ALBUMIN/GLOBULIN RATIO 0.6 (0.8-2.0); ALKALINE PHOSPHATASE 55 IU/L (40-150); BILIRUBIN,TOTAL 0.3 mg/dL (0.2-1.2); BLOOD UREA NITROGEN 8 mg/dL (7-26); BUN/CREATININE RATIO 14 (6-25); CREATININE, SERUM 0.56 mg/dL (0.57-1.11); EST GLOMERULAR FILTRATION RATE 113 ML/MIN (>=60); GLUCOSE 152 mg/dL (74-118); TOTAL PROTEIN 5.3 g/dL (6.5-8.1)
[2024-03-09 06:45] LABS: ALANINE AMINOTRANSFERASE < 6 IU/L (0-55)
[2024-03-09] MEDS: LORAZEPAM INJ 2 MG/ML VIAL IV ONE (08:38)
[2024-03-09] MEDS ORDERED: DEXAMETHASONE SOD PHOS INJ 4 MG/ML SDV ONE (12:08)
[2024-03-09] MEDS ORDERED: SUCCINYLCHOLINE CHLORIDE 20 MG/ML 10ML VIAL ONE (12:08)
[2024-03-09] MEDS ORDERED: ONDANSETRON HCL INJ 2MG/ML 2ML 2 MG/ML VIAL ONE (12:08)
[2024-03-09] MEDS ORDERED: PROPOFOL IV EMULSION 10 MG/ML 20 ML VIAL ONE (12:08)
[2024-03-09] MEDS ORDERED: ROCURONIUM BROMIDE 10 MG/ML 5ML VIAL IV ONE (12:08)
[2024-03-09] MEDS ORDERED: LIDOCAINE HCL 2% LOCAL INJ 5 ML SDV VIAL INJ ONE (12:08)
[2024-03-09] MEDS ORDERED: METOCLOPRAMIDE HCL 10 MG/2ML VIAL ONE (12:08)
[2024-03-09] MEDS ORDERED: SEVOFLURANE INHAL SOLN 250 ML PEN BTL ONE (12:08)
[2024-03-09] MEDS: METRONIDAZOLE 500MG/NS 100ML 100 ML IV SCH (14:52)
[2024-03-09 16:50] LABS: ANION GAP 13.9 mmol/L (8-16); BLOOD UREA NITROGEN < 5 mg/dL (7-26); CALCIUM 8.6 mg/dL (8.4-10.2); CARBON DIOXIDE 24 mmol/L (22-29); CHLORIDE 105 mmol/L (98-107); CREATININE, SERUM 0.55 mg/dL (0.57-1.11); EST GLOMERULAR FILTRATION RATE 114 ML/MIN (>=60); GLUCOSE 118 mg/dL (74-118); MAGNESIUM 1.5 MG/DL (1.3-2.1); POTASSIUM 3.9 mmol/L (3.5-5.1); SODIUM 139 mmol/L (136-145)
[2024-03-09 16:51] LABS: BUN/CREATININE RATIO 9 (6-25)
[2024-03-09] MEDS: HYDROMORPHONE 2MG/ML IV PRN (17:58)
[2024-03-09] MEDS: CHLORASEPTIC SPRAY 177 ML BTL MM PRN (20:05)
[2024-03-10] VITALS (46 sets, daily range): BP systolic 96–120; BP diastolic 68–85; PULSE 66–95; RESP 8–25; TEMP 97.8–98.1; O2SAT 90–100
[2024-03-10] MEDS: HYDROMORPHONE 1MG/1ML INJ IV PRN (01:01)
[2024-03-10 06:41] LABS: BASOPHILS % 0.2 % (0.0-1.0); EOSINOPHILS % 0.2 % (0.0-6.0); HEMATOCRIT 34.5 % (34.2-44.1); LYMPHOCYTES # (AUTO) 2.6 (1.0-3.2); LYMPHOCYTES % 17.1 % (18.0-39.1); MEAN CORPUSCULAR HEMOGLOBIN 34.3 pg (28-32); MEAN CORPUSCULAR HGB CONC 31.9 g/dL (31-35); MEAN CORPUSCULAR VOLUME 107.5 fL (81-99); MONOCYTES # (AUTO) 0.9 (0.2-0.8); NEUTROPHILS # (AUTO) 11.4 (2.1-6.9); NEUTROPHILS % 75.8 % (38.7-80.0); PLATELET COUNT 405 x10e3/uL (140-360); RED BLOOD COUNT 3.21 x10e6/uL (3.6-5.1); RED CELL DISTRIBUTION WIDTH 14.9 % (11.7-14.4); WHITE BLOOD COUNT 15.05 x10e3/uL (4.8-10.8)
[2024-03-10 06:59] LABS: ANION GAP 11.6 mmol/L (8-16); CREATININE, SERUM 0.51 mg/dL (0.57-1.11); POTASSIUM 3.6 mmol/L (3.5-5.1)
[2024-03-10] MEDS: HYDROMORPHONE 2MG/ML IV PRN ×2 (07:10→13:27)
[2024-03-10] MEDS: KETOROLAC TROMETHAMINE 30 MG/ML VIAL IM PRN (11:48)
[2024-03-10] MEDS: LORAZEPAM INJ 2 MG/ML VIAL IV PRN (14:42)
[2024-03-10] MEDS: ENOXAPARIN SOD INJ 60 MG/0.6 ML SYR SC SCH (16:34)
[2024-03-11] VITALS (36 sets, daily range): BP systolic 107–131; BP diastolic 69–103; PULSE 64–94; RESP 12–21; TEMP 98.2–98.6; O2SAT 93–98
[2024-03-11 06:30] LABS: BASOPHILS % 0.4 % (0.0-1.0); EOSINOPHILS # (AUTO) 0.2 (0.0-0.4); EOSINOPHILS % 1.6 % (0.0-6.0); HEMATOCRIT 34.3 % (34.2-44.1); HEMOGLOBIN 10.8 g/dL (12.0-16.0); LYMPHOCYTES # (AUTO) 2.9 (1.0-3.2); LYMPHOCYTES % 26.5 % (18.0-39.1); MEAN CORPUSCULAR HEMOGLOBIN 33.9 pg (28-32); MEAN CORPUSCULAR HGB CONC 31.5 g/dL (31-35); MEAN CORPUSCULAR VOLUME 107.5 fL (81-99); MONOCYTES # (AUTO) 0.8 (0.2-0.8); MONOCYTES % 7.7 % (4.4-11.3); NEUTROPHILS # (AUTO) 6.9 (2.1-6.9); NEUTROPHILS % 63.4 % (38.7-80.0); PLATELET COUNT 357 x10e3/uL (140-360); RED BLOOD COUNT 3.19 x10e6/uL (3.6-5.1); RED CELL DISTRIBUTION WIDTH 14.6 % (11.7-14.4); WHITE BLOOD COUNT 10.84 x10e3/uL (4.8-10.8)
[2024-03-11 07:07] LABS: ALANINE AMINOTRANSFERASE 8 IU/L (0-55); ALBUMIN 1.9 g/dL (3.5-5.0); ALBUMIN/GLOBULIN RATIO 0.6 (0.8-2.0); ALKALINE PHOSPHATASE 65 IU/L (40-150); ANION GAP 14.3 mmol/L (8-16); BILIRUBIN,TOTAL 0.3 mg/dL (0.2-1.2); BLOOD UREA NITROGEN < 5 mg/dL (7-26); CALCIUM 7.9 mg/dL (8.4-10.2); CARBON DIOXIDE 22 mmol/L (22-29); CHLORIDE 104 mmol/L (98-107); CREATININE, SERUM 0.46 mg/dL (0.57-1.11); EST GLOMERULAR FILTRATION RATE 119 ML/MIN (>=60); GLUCOSE 75 mg/dL (74-118); SODIUM 137 mmol/L (136-145); TOTAL PROTEIN 5.1 g/dL (6.5-8.1)
[2024-03-11 07:09] LABS: BUN/CREATININE RATIO 11 (6-25); POTASSIUM 3.3 mmol/L (3.5-5.1)
[2024-03-11 12:35] LABS: FERRITIN 176.35 ng/mL (4.63-204.00)
[2024-03-11 13:34] LABS: FOLATE 5.9 ng/mL (7.0-15.4)
[2024-03-12] VITALS (24 sets, daily range): BP systolic 108–129; BP diastolic 64–84; PULSE 62–91; RESP 10–24; TEMP 97.9–98.6; O2SAT 92–97
[2024-03-12 06:33] LABS: BASOPHILS # (AUTO) 0.1 (0.0-0.1); BASOPHILS % 0.6 % (0.0-1.0); EOSINOPHILS # (AUTO) 0.3 (0.0-0.4); EOSINOPHILS % 2.8 % (0.0-6.0); HEMATOCRIT 33.2 % (34.2-44.1); HEMOGLOBIN 11.1 g/dL (12.0-16.0); LYMPHOCYTES # (AUTO) 2.6 (1.0-3.2); LYMPHOCYTES % 27.7 % (18.0-39.1); MEAN CORPUSCULAR HEMOGLOBIN 34.6 pg (28-32); MEAN CORPUSCULAR HGB CONC 33.4 g/dL (31-35); MEAN CORPUSCULAR VOLUME 103.4 fL (81-99); MONOCYTES # (AUTO) 0.7 (0.2-0.8); MONOCYTES % 7.3 % (4.4-11.3); NEUTROPHILS # (AUTO) 5.8 (2.1-6.9); NEUTROPHILS % 61.1 % (38.7-80.0); PLATELET COUNT 378 x10e3/uL (140-360); RED BLOOD COUNT 3.21 x10e6/uL (3.6-5.1); RED CELL DISTRIBUTION WIDTH 14.2 % (11.7-14.4); WHITE BLOOD COUNT 9.53 x10e3/uL (4.8-10.8)
[2024-03-12 07:06] LABS: ALANINE AMINOTRANSFERASE 10 IU/L (0-55); ALBUMIN 1.9 g/dL (3.5-5.0); ALBUMIN/GLOBULIN RATIO 0.6 (0.8-2.0); ALKALINE PHOSPHATASE 64 IU/L (40-150); ANION GAP 15.2 mmol/L (8-16); BILIRUBIN,TOTAL 0.4 mg/dL (0.2-1.2); BLOOD UREA NITROGEN < 5 mg/dL (7-26); CALCIUM 7.4 mg/dL (8.4-10.2); CARBON DIOXIDE 21 mmol/L (22-29); CHLORIDE 104 mmol/L (98-107); CREATININE, SERUM 0.49 mg/dL (0.57-1.11); EST GLOMERULAR FILTRATION RATE 117 ML/MIN (>=60); SODIUM 137 mmol/L (136-145)
[2024-03-12 07:11] LABS: BUN/CREATININE RATIO 10 (6-25); POTASSIUM 3.2 mmol/L (3.5-5.1)
[2024-03-12 07:12] LABS: GLUCOSE 57 mg/dL (74-118)
[2024-03-12] MEDS: DEXTROSE 50% SYRINGE 50 ML IV ONE ×3 (07:44→13:01)
[2024-03-12] MEDS: MAGNESIUM SULFATE 2GM/50ML 50 ML IV ONE (07:44)
[2024-03-12] MEDS: BISACODYL 10 MG SUPP PR ONE (08:59)
[2024-03-12] MEDS: LORAZEPAM INJ 2 MG/ML VIAL IV PRN (09:14)
[2024-03-12] MEDS: POTASSIUM CHLORIDE 20MEQ/100ML 100 ML IV ONE ×2 (10:46→13:02)
[2024-03-12] MEDS: DEXTROSE 5%/0.45% SOD CHL 1,000 ML IV SCH (13:01)
[2024-03-12 19:09] LABS: DRVVT CONFIRM 62.1 sec (.)
[2024-03-13] VITALS (14 sets, daily range): BP systolic 105–128; BP diastolic 72–87; PULSE 63–96; RESP 9–20; TEMP 97.9–98.6; O2SAT 90–97
[2024-03-13 05:28] LABS: ANTICARDIOLIPIN IGA <10 APL (.); ANTICARDIOLIPIN IGG <10 GPL (.); APTT 28.4 sec (.); B 2 GLYCOPROTEIN IGA <10 SAU (.); B 2 GLYCOPROTEIN IGG <10 SGU (.); B 2 GLYCOPROTEIN IGM <10 SMU (.); HEX PHOS NEUTRALIZATION 6 sec (.)
[2024-03-13 05:29] LABS: ANTIPROTHROMBIN IGG 1 G units (.)
[2024-03-13 06:10] LABS: BASOPHILS # (AUTO) 0.1 (0.0-0.1); BASOPHILS % 0.6 % (0.0-1.0); EOSINOPHILS # (AUTO) 0.3 (0.0-0.4); EOSINOPHILS % 4.1 % (0.0-6.0); HEMATOCRIT 34.3 % (34.2-44.1); HEMOGLOBIN 11.8 g/dL (12.0-16.0); LYMPHOCYTES # (AUTO) 2.2 (1.0-3.2); MEAN CORPUSCULAR HEMOGLOBIN 34.3 pg (28-32); MEAN CORPUSCULAR HGB CONC 34.4 g/dL (31-35); MEAN CORPUSCULAR VOLUME 99.7 fL (81-99); MONOCYTES # (AUTO) 0.8 (0.2-0.8); MONOCYTES % 10.2 % (4.4-11.3); NEUTROPHILS # (AUTO) 4.6 (2.1-6.9); NEUTROPHILS % 57.6 % (38.7-80.0); PLATELET COUNT 398 x10e3/uL (140-360); RED BLOOD COUNT 3.44 x10e6/uL (3.6-5.1); WHITE BLOOD COUNT 8.01 x10e3/uL (4.8-10.8)
[2024-03-13 06:40] LABS: ALANINE AMINOTRANSFERASE 9 IU/L (0-55); ALBUMIN 2.1 g/dL (3.5-5.0); ALBUMIN/GLOBULIN RATIO 0.7 (0.8-2.0); ALKALINE PHOSPHATASE 63 IU/L (40-150); ANION GAP 12.3 mmol/L (8-16); BILIRUBIN,TOTAL 0.4 mg/dL (0.2-1.2); BLOOD UREA NITROGEN < 5 mg/dL (7-26); BUN/CREATININE RATIO 9 (6-25); CARBON DIOXIDE 27 mmol/L (22-29); CHLORIDE 103 mmol/L (98-107); CREATININE, SERUM 0.53 mg/dL (0.57-1.11); EST GLOMERULAR FILTRATION RATE 115 ML/MIN (>=60); GLUCOSE 95 mg/dL (74-118); MAGNESIUM 1.5 MG/DL (1.3-2.1); SODIUM 139 mmol/L (136-145); TOTAL PROTEIN 5.2 g/dL (6.5-8.1)
[2024-03-13 06:42] LABS: POTASSIUM 3.3 mmol/L (3.5-5.1)
[2024-03-13] MEDS ORDERED: FOLIC ACID 1 MG TAB PO SCH (09:00)
[2024-03-13] MEDS: MAGNESIUM SULFATE 2GM/50ML 50 ML IV SCH (12:07)
[2024-03-13] MEDS: POTASSIUM CHLORIDE 10MEQ EA PO ONE (12:08)
[2024-03-13] MEDS: LORAZEPAM 0.5 MG TAB PO ONE (12:36)
[2024-03-13] MEDS: HYDROMORPHONE 1MG/1ML INJ IV PRN (16:39)
[2024-03-13] MEDS: HYDROCODONE/APAP 7.5MG-325MG 1 EA TAB PO PRN (18:45)
[2024-03-13] MEDS: PRAMIPEXOLE DIHYDROCHLORIDE 0.25 MG TAB PO SCH (20:20)
[2024-03-13] MEDS: LORAZEPAM 0.5 MG TAB PO PRN (22:24)
[2024-03-14] VITALS (8 sets, daily range): BP systolic 121–128; BP diastolic 85–93; PULSE 71–86; RESP 16–20; TEMP 97.8–98.7; O2SAT 93–97
[2024-03-14 05:42] LABS: BASOPHILS # (AUTO) 0.1 (0.0-0.1); BASOPHILS % 0.6 % (0.0-1.0); EOSINOPHILS # (AUTO) 0.4 (0.0-0.4); EOSINOPHILS % 4.6 % (0.0-6.0); HEMATOCRIT 36.7 % (34.2-44.1); HEMOGLOBIN 12.2 g/dL (12.0-16.0); LYMPHOCYTES # (AUTO) 2.3 (1.0-3.2); LYMPHOCYTES % 28.5 % (18.0-39.1); MEAN CORPUSCULAR HEMOGLOBIN 33.4 pg (28-32); MEAN CORPUSCULAR HGB CONC 33.2 g/dL (31-35); MEAN CORPUSCULAR VOLUME 100.5 fL (81-99); MONOCYTES # (AUTO) 0.8 (0.2-0.8); MONOCYTES % 9.7 % (4.4-11.3); NEUTROPHILS # (AUTO) 4.6 (2.1-6.9); NEUTROPHILS % 55.9 % (38.7-80.0); PLATELET COUNT 430 x10e3/uL (140-360); RED BLOOD COUNT 3.65 x10e6/uL (3.6-5.1); RED CELL DISTRIBUTION WIDTH 14.1 % (11.7-14.4); WHITE BLOOD COUNT 8.18 x10e3/uL (4.8-10.8)
[2024-03-14 06:28] LABS: ANION GAP 12.4 mmol/L (8-16); BLOOD UREA NITROGEN < 5 mg/dL (7-26); BUN/CREATININE RATIO 10 (6-25); CALCIUM 7.9 mg/dL (8.4-10.2); CARBON DIOXIDE 26 mmol/L (22-29); CHLORIDE 105 mmol/L (98-107); CREATININE, SERUM 0.51 mg/dL (0.57-1.11); EST GLOMERULAR FILTRATION RATE 116 ML/MIN (>=60); GLUCOSE 104 mg/dL (74-118); MAGNESIUM 1.9 MG/DL (1.3-2.1); SODIUM 140 mmol/L (136-145)
[2024-03-14 06:31] LABS: POTASSIUM 3.4 mmol/L (3.5-5.1)
[2024-03-14] MEDS: POTASSIUM CHLORIDE 10MEQ EA PO ONE (08:58)
[2024-03-14] MEDS: FOLIC ACID 1 MG TAB PO SCH (08:58)
[2024-03-14] MEDS: TIZANIDINE HCL 4 MG TAB PO PRN (14:28)
[2024-03-14] MEDS: PRAMIPEXOLE DIHYDROCHLORIDE 0.25 MG TAB PO SCH (21:14)
[2024-03-15] VITALS (9 sets, daily range): BP systolic 114–123; BP diastolic 80–87; PULSE 68–84; RESP 17–20; TEMP 98.1–98.3; O2SAT 94–97
[2024-03-15 05:26] LABS: BASOPHILS # (AUTO) 0.1 (0.0-0.1); BASOPHILS % 0.7 % (0.0-1.0); EOSINOPHILS # (AUTO) 0.5 (0.0-0.4); EOSINOPHILS % 5.8 % (0.0-6.0); HEMATOCRIT 35.5 % (34.2-44.1); HEMOGLOBIN 12.3 g/dL (12.0-16.0); LYMPHOCYTES # (AUTO) 2.8 (1.0-3.2); LYMPHOCYTES % 31.3 % (18.0-39.1); MEAN CORPUSCULAR HEMOGLOBIN 34.2 pg (28-32); MEAN CORPUSCULAR HGB CONC 34.6 g/dL (31-35); MEAN CORPUSCULAR VOLUME 98.6 fL (81-99); MONOCYTES % 10.7 % (4.4-11.3); NEUTROPHILS # (AUTO) 4.6 (2.1-6.9); NEUTROPHILS % 50.6 % (38.7-80.0); PLATELET COUNT 406 x10e3/uL (140-360); RED CELL DISTRIBUTION WIDTH 14.5 % (11.7-14.4); WHITE BLOOD COUNT 8.99 x10e3/uL (4.8-10.8)
[2024-03-15 05:50] LABS: ANION GAP 14.7 mmol/L (8-16); BLOOD UREA NITROGEN < 5 mg/dL (7-26); BUN/CREATININE RATIO 9 (6-25); CALCIUM 8.7 mg/dL (8.4-10.2); CARBON DIOXIDE 23 mmol/L (22-29); CHLORIDE 105 mmol/L (98-107); CREATININE, SERUM 0.57 mg/dL (0.57-1.11); EST GLOMERULAR FILTRATION RATE 113 ML/MIN (>=60); GLUCOSE 104 mg/dL (74-118); MAGNESIUM 1.6 MG/DL (1.3-2.1); POTASSIUM 3.7 mmol/L (3.5-5.1); SODIUM 139 mmol/L (136-145)
[2024-03-15] MEDS: MAGNESIUM SULFATE 2GM/50ML 50 ML IV ONE (08:53)
[2024-03-15] MEDS: SODIUM CHLORIDE 0.9% 250ML 250 ML ONE (09:07)
[2024-03-16] VITALS: BP 113/80; PULSE 82; RESP 18; TEMP 98.7; O2SAT 97
[2024-03-16 04:00] VITALS: BP 128/91; PULSE 89; RESP 18; TEMP 98.3; O2SAT 96
[2024-03-16 07:51] VITALS: PULSE 71; RESP 18; O2SAT 93
[2024-03-16 09:10] VITALS: BP 128/91; PULSE 71; RESP 18; TEMP 98.3; O2SAT 93
[2024-03-16] MEDS ORDERED: PRAMIPEXOLE DI0.5 MG PO (11:19)
[2024-03-16] MEDS ORDERED: ACETAMINOPHEN 325 MG TAB PO PRN (11:30)
[2024-03-16] MEDS: SUMATRIPTAN SUCCINATE 25 MG TAB PO PRN (11:59)
== END 2024-03-16 19:00 | disposition home or self-care (01) | DRG 330 ==
LOC: ER 13:53 → ERHOLD 17:28 → MED/SURG2 18:12 → ICU 03-08 14:58 → MED/SURG 03-13 11:33
PROVIDERS: ADMIT Internal Medicine; ATTEND Internal Medicine
PROC: 02HV33Z Insertion of Infusion Device into Superior Vena Cava, Percutaneous Approach (ICD-10-PCS; 2024-03-01)
PROC: 0WQF0ZZ Repair Abdominal Wall, Open Approach (ICD-10-PCS; 2024-03-08)
PROC: 0TQB0ZZ Repair Bladder, Open Approach (ICD-10-PCS; 2024-03-08)
PROC: 0W9G0ZZ Drainage of Peritoneal Cavity, Open Approach (ICD-10-PCS; 2024-03-08)
PROC: 0DBN0ZZ Excision of Sigmoid Colon, Open Approach (ICD-10-PCS; principal; 2024-03-08 14:28)
DX: K57.20 Diverticulitis of large intestine with perforation and abscess without bleeding (principal); E44.0 Moderate protein-calorie malnutrition; E72.12 Methylenetetrahydrofolate reductase deficiency; N32.1 Vesicointestinal fistula; D63.8 Anemia in other chronic diseases classified elsewhere; K43.9 Ventral hernia without obstruction or gangrene; Z68.23 Body mass index [BMI] 23.0-23.9, adult; D75.838 Other thrombocytosis; E04.1 Nontoxic single thyroid nodule; G25.81 Restless legs syndrome; Z79.01 Long term (current) use of anticoagulants; Z86.718 Personal history of other venous thrombosis and embolism; Z86.711 Personal history of pulmonary embolism; Z90.49 Acquired absence of other specified parts of digestive tract; F17.210 Nicotine dependence, cigarettes, uncomplicated
CPT/HCPCS: 36415; 36568; 71260; 74018; 74177; 80048; 80053; 80202; 81001; 82607; 82728; 82746; 82948; 83090; 83540; 83605; 83615; 83690; 83735; 84466; 84702; 85025; 85045; 85379; 85597; 85598; 85610; 85613; 85730; 85732; 86146; 86147; 86148; 86849; 87040; 87071; 87075; 87205; 88304; 88307; 94640; 94799; 96361; 99252; 99284; J0171; J0330; J0692; J1100; J1170; J1650; J1885; J1940; J2001; J2060; J2185; J2405; J2550; J2765; J2795; J3475; J3480; J7030; J7050; J7799; Q9967; U0002